=== PATIENT | female | born 1960 | race Two or more races ===

== ENCOUNTER → 2018-12-30 | Emergency (ER) | payer SELFPAY ==
[~2018-12-30] VITALS: Ht 165.1 cm; Wt 86.6 kg
[~2018-12-30] MED LIST: LORAZEPAM 1 MG TABLET ONE; LORAZEPAM 1 MG TABLET PO ONE
[2018-12-30 12:44] VITALS: BP 133/74
--- NOTE | 2018-12-30 13:03 | NUR ---
P REC'D TO ER EMS PT HAD ANXIETY ATTACK AT [employer] STATION HIT HER TODAY . GAVE HER ATIVAN 1 MG PO . ACCIDENTALLY TOOK TWO AND RETURNED ANT WITNESSED COUNT CORRECT NOW
--- NOTE | 2018-12-30 13:05 | NUR ---
WITNESSED RETURN OF 2 MG ATIVAN PO IN OMNICELL.
--- NOTE | 2018-12-30 13:29 | NUR ---
GIVEN OPITIONS FOR PENITENTIARY [employer]LLD FRIEND TO GET HER AND STAY WITH HER UNTIL SHE CAN REMOVE THE FROM HER HOME PT. VERBALIZED UNDERSTANDING OF AFTERCARE INSTRUCTIONS.Patient discharged to home in stable condition. Written and verbal after care instructions given. Patient verbalizes understanding of instruction.
== END | disposition home or self-care (01) ==
LOC: ER 12:38
DX: S00.531A Contusion of lip, initial encounter (principal); F41.0 Panic disorder [episodic paroxysmal anxiety]; E11.9 Type 2 diabetes mellitus without complications; E78.00 Pure hypercholesterolemia, unspecified; X58.XXXA Exposure to other specified factors, initial encounter; Y93.89 Activity, other specified; Y92.89 Other specified places as the place of occurrence of the external cause; Y99.8 Other external cause status